=== PATIENT | male | born 1970 | race Caucasian/White ===

== ENCOUNTER 2025-07-07 14:40 | Emergency (ER) | payer BC, SELFPAY ==
[2025-07-07 14:45] VITALS: BP 140/74
--- NOTE | 2025-07-07 16:50 | ED.GENMED ---
History of Present Illness
General
Chief Complaint: Skin Surface Trauma
Source: patient
Exam Limitations: none
Time Seen by Provider: 07/07/25 16:24
Nursing documentation reviewed up to this point in time: agreed with
History of Present Illness
History of Present Illness:
Patient is a 54-year-old male with history hypertension, hyperlipidemia who presents to the emergency department for evaluation of laceration of left third finger. Patient states he was opening a box with a knife and and accidentally cut his left
middle finger. He states that he bled through 3 Band-Aids at home prompting evaluation in the emergency department. Patient denies any numbness/tingling or limited range of motion in affected finger. No other injuries sustained.
He is unsure when his last tetanus vaccine was.
Past History
Past History
ED Past Medical History: Other (Spinal stenosis)
ED Past Surgical History: None
Social History
Tobacco: Non-smoker
Review of Systems
Review of Systems
Allergies reviewed?: Yes
All Other Systems: ROS reviewed and negative except as documented in HPI and ROS
Phy Exam
Physical Exam
Physical Exam:
Vitals: Patient's vital signs are stable. Afebrile
General: Patient is well appearing, no acute distress
Skin: Approximately 2 cm superficial laceration to left third finger between DIP and PIP joints. No active bleeding
Head: Normocephalic, atraumatic
Throat: Protecting airway
Neck: Normal ROM, no cervical spine tenderness
Cardiac: Regular rate
Pulm: No apparent respiratory distress
Abdomen: Nondistended
Extremities: Laceration to left third digit between DIP and PIP joint as above. No evidence of tendon involvement. Full range of motion in all joints of left third finger against resistance. Normal sensation and capillary refill.
Neuro: Grossly intact
Psychiatric: Normal affect.
Course
Orders/Labs/Results
Orders:
Orders
07/07/25 16:47
Tetanus/Diphth/Acelpertussis [Adacel] 0.5 ml IM .ONCE ONE
Vital Signs
Initial and Last Documented VS:
Initial Vital Signs
Temp Pulse Resp BP Pulse Ox
98.6 F 125 20 140/74 96
07/07/25 14:45 07/07/25 14:45 07/07/25 14:45 07/07/25 14:45 07/07/25 14:45
Last Documented Vital Signs
Temp Pulse Resp BP Pulse Ox
98.6 F 87 18 140/74 97
07/07/25 14:45 07/07/25 17:39 07/07/25 17:39 07/07/25 14:45 07/07/25 17:39
Procedures
Laceration Closure
Left Third Finger:
Size of Wound in cm: 2
Description of Wound Edges: sharp
Revision/Debridement: routine- no revision
Wound exploration: explored to base- no FB
Type of Closure: Dermabond-skin glue
MDM/Problems Addressed
Differential Diagnosis Includes:
Not limited to: Laceration, abrasion, tendon injury, etc.
MDM/Problems Addressed:
54-year-old male with superficial laceration left third digit. Accidentally cut with knife at home. Unknown last Tdap. No other injuries. Vital stable. On exam, he has an approximately 2 cm superficial laceration of left third digit between DIP
and PIP joint. There is no evidence of tendon involvement or neurovascular compromise. Wound will require primary closure. Discussed skin glue vs sutures at length. Patient ultimately prefers skin glue.
Verbal consent obtained. Laceration irrigated with normal saline. Wound edges well-approximated dressing finger splint applied by RN until range of motion has remained healing. Tdap updated. Discussed wound care instructions and return
precautions. Patient comfortable with plan.
Chronic conditions affecting care:
N/A
Acute Exacerbation and/or Progression of Chronic Illness:
N/A
*Pulse Oximetry
SaO2: 96
Oxygen Mode of Delivery: Room air
Patient hypoxic: no
*EKG
Interpreted by ED Provider?: NA
*Hemmer Automatic Interpretation
Rate: Hemmer Automatic- N/A
*Critical Care Note
Total Time (30-74mins, 75-104mins- exclusive of procedures): Not Applicable
ED Attending Note
-
Portions of this chart may have been created with voice recognition software.� Occasional wrong word or��sound alike� substitutions may have occurred due to the inherent limitations of voice recognition software.
Discharge Plan
Departure
Patient Disposition: Home (Routine Discharge)
Date of Disposition: 07/07/25
Time of Disposition: 17:12
Patient with high blood pressure during this ER visit?: Yes
Condition: Good
Discharge Problem:
Laceration of left middle finger
Instructions: Laceration Repair With Glue (DC), BLOOD PRESSURE
Prescriptions:
No Action
oxycodone-acetaminophen 5 MG/325 MG tablet
1 - 2 tab PO Q4HPRN PRN (Reason: Severe pain) Qty: 15 0RF
ibuprofen 800 MG tablet
800 mg PO Q8 Qty: 20 0RF
prednisone 50 MG tablet
50 mg PO Daily Qty: 4 0RF
Referrals:
Lisa Pagan DO [Family Provider, Family Practice] - As needed
Activity Restrictions/Additional Instructions:
RETURN TO THE EMERGENCY DEPARTMENT WITH ANY BLEEDING OR LACERATION THAT WILL NOT STOP AT HOME, OR ANY SIGNS OF INFECTION INCLUDING FEVERS, SIGNIFICANT REDNESS SWELLING OR DRAINAGE FROM WOUND, WORSENING CURRENT SYMPTOMS, OR ANY OTHER CONCERNS
- Your laceration was closed with skin glue today in emergency department. Please keep wound clean and dry. Wash gently daily. Wear splint for 1 week until laceration heals to limit range of motion prevent reopening of wound.
- You can take Tylenol and/Motrin as needed for pain.
- Follow-up with primary care for further evaluation/management as needed
Monitor your symptoms closely and return to the emergency department with any acute worsening/new symptoms or any other concerns
Interventions
Interventions:
*General Assessment Last Done: 07/07/25 17:13
*Neglect/Abuse Screening Last Done: 07/07/25 17:13
*ED COVID-19 Vaccine History Last Done: 07/07/25 14:45
*ED Influenza Vaccine History Last Done: 07/07/25 14:45
*Risk Screen - Suicide (C-SSRS) Last Done: 07/07/25 14:45
*Nursing Disposition Last Done: 07/07/25 17:40
ED-Skin Assessment Last Done: 07/07/25 17:39
Discharge Date and Time
Discharge Date/Time: 07/07/25 17:41
Print Language: CITIZEN [place]
[2025-07-07] MEDS: ADACEL 0.5 ML IM (17:09)
== END 2025-07-07 17:41 | disposition home or self-care (01) ==
LOC: EMR 14:40
PROVIDERS: EMERGENCY PHYSICIAN Emergency Medicine; FAMILY PHYSICIAN Family Medicine
DX: S61.213A Laceration without foreign body of left middle finger without damage to nail, initial encounter (principal); W26.0XXA Contact with knife, initial encounter; Y92.009 Unspecified place in unspecified non-institutional (private) residence as the place of occurrence of the external cause; Z23 Encounter for immunization; M48.00 Spinal stenosis, site unspecified; I10 Essential (primary) hypertension
CPT/HCPCS: 99282; 12001; 90471; 90715